=== PATIENT | male | born 1950 | race Caucasian/White ===

== ENCOUNTER 2024-10-18 10:00 | Day surgery (SDC) | payer MEDICARE, OTHER ==
[2024-10-18] MEDS ORDERED: Sodium Chloride 0.9% 10 ML FLUSH Syringe IJ ONE (10:15)
[2024-10-18] MEDS: Ak-Dilate OPHTHALMIC*** 1.065 ML, Cyclogyl 1% OPHTH SOL 1.065 ML, GATIFLOXACIN 0.5% OPH... OP ONE (12:00)
[2024-10-18] MEDS: TETRACAINE 0.5% STERI-UNIT SOL OP ONE ×2 (12:00→12:27)
[2024-10-18 12:08] LABS: Calcium 8.7 mg/dL (8.4-10.2); Creatinine 1 1.22 mg/dL (0.66-1.25); EST GLOMERULAR FILTRATION RATE 61.4 ML/MIN; Potassium 4.4 mmol/L (3.5-5.1)
[2024-10-18] MEDS ORDERED: Epinephrine Preservative Free 1 MG/ML IJ ONE (12:15)
[2024-10-18] MEDS ORDERED: VIGAMOX/BSS 0.15% SYR IO ONE (12:15)
[2024-10-18] MEDS ORDERED: BETADINE 5% OPHTHALMIC 30 ML OP ONE (12:15)
[2024-10-18] MEDS ORDERED: Zofran 4 MG/2 ML VIAL IV PRN (12:15)
[2024-10-18] MEDS ORDERED: TRIAMCINOLONE 15 MG/ML INJ INTRAOP ONE (12:15)
[2024-10-18] MEDS ORDERED: DIPRIVAN 200 MG/20 ML IV ONE (13:38)
[2024-10-18 14:06] VITALS: RESP 16; TEMP 97.6
[2024-10-18] MEDS: ACETAZOLAMIDE 250 MG TABLET PO ONE (14:15)
[2024-10-18 14:18] VITALS: BP 101/63; PULSE 81; O2SAT 96
== END 2024-10-18 14:24 | disposition home or self-care (01) ==
LOC: EDBD → SDC 10:00
PROVIDERS: ATTEND Ophthalmology
DX: H25.811 Combined forms of age-related cataract, right eye (principal); J44.9 Chronic obstructive pulmonary disease, unspecified
CPT/HCPCS: 36415; 80048; 93005; 99100; C1780; J0171; J2704; A9270-GY

== ENCOUNTER 2024-11-15 07:48 | Day surgery (SDC) | payer MEDICARE, OTHER ==
[2024-11-15 07:57] VITALS: RESP 18
[2024-11-15] MEDS ORDERED: VIGAMOX/BSS 0.15% SYR IO ONE (08:00)
[2024-11-15] MEDS ORDERED: TRIAMCINOLONE 15 MG/ML INJ INTRAOP ONE (08:00)
[2024-11-15] MEDS ORDERED: BETADINE 5% OPHTHALMIC 30 ML OP ONE (08:00)
[2024-11-15] MEDS: TETRACAINE 0.5% STERI-UNIT SOL OP ONE ×2 (08:23→08:55)
[2024-11-15] MEDS: Ak-Dilate OPHTHALMIC*** 1.065 ML, Cyclogyl 1% OPHTH SOL 1.065 ML, GATIFLOXACIN 0.5% OPH... OP ONE (08:24)
[2024-11-15] MEDS: Sodium Chloride 0.9% 10 ML FLUSH Syringe IJ ONE (08:55)
[2024-11-15] MEDS ORDERED: Epinephrine Preservative Free 1 MG/ML IJ ONE (10:00)
[2024-11-15] MEDS ORDERED: Zofran 4 MG/2 ML VIAL IV PRN (10:00)
[2024-11-15] MEDS ORDERED: DIPRIVAN 200 MG/20 ML IV ONE (10:36)
[2024-11-15 11:02] VITALS: TEMP 97.2
[2024-11-15] MEDS: ACETAZOLAMIDE 250 MG TABLET PO ONE (11:22)
[2024-11-15 11:29] VITALS: BP 114/68; PULSE 80; O2SAT 94
[2024-11-15] MEDS: Sodium Chloride 0.9% 250 ML 250 ML IV SCH (11:42)
== END 2024-11-15 10:58 | disposition home or self-care (01) ==
LOC: SDC 07:48
PROVIDERS: ATTEND Ophthalmology
DX: H25.812 Combined forms of age-related cataract, left eye (principal)
CPT/HCPCS: C1780; J0171; J2704; A9270-GY